=== PATIENT | male | born 1985 | race Caucasian/White ===

== ENCOUNTER 2022-04-17 14:01 | Outpatient (CLI) | payer OTHER, SELFPAY ==
[2022-04-17 14:33] LABS: Viscosity Semen Normal
[2022-04-17 14:34] LABS: Epithelial Count Semen 0-4 /hpf; Pathology Referral Yes; Sperm Immotility 10 % (50-60); Sperm Non-Progressive Motility 40 % (5-10); Sperm Progressive Motility 50 % (31-34)
== END 2022-04-17 14:02 | disposition home or self-care (01) ==
PROVIDERS: Visit Provider Obstetrics & Gynecology
DX: N46.9 Male infertility, unspecified (principal)
CPT/HCPCS: 80503; 89320